=== PATIENT | male | born 1930 | race Caucasian/White ===

== ENCOUNTER 2017-03-24 21:57 | Inpatient (IN) | payer OTHER ==
[~2017-03-24] VITALS: Ht 170.2 cm; Wt 77.4 kg
[~2017-03-24 21:57] MED LIST: ASPIR 8181 M1 PO; ASPIR-LOW81 MG PO; ATORVASTATIN CA20 MG PO; AUGMENTIN875 MG PO; AZITHROMYCIN250 MG1 PO; CARDIZEM CD,CA240 MG PO; CARDIZEM CD120 M1 PO; CEFTIN500 MG PO; CETIRIZINE HCL10 M2 PO; DAILY VALUE1 EACH PO; FEOSOL45 MG PO; FUROSEMIDE20 MG PO; K-TAB ER8 MEQ PO; LANSOPRAZOLE30 MG PO; LEVAQUIN500 MG PO; LEVAQUIN750 MG PO; LIPITOR80 MG PO; LISINOPRIL10 MG PO; LORAZEPAM0.5 MG PO; MIRALAX17 GM PO; PREDNISONE10 MG PO; PREDNISONE5 MG PO; PRILOSEC20 MG PO; PRINIVIL10 MG PO; PROVENTIL,2.5 MG/3 M IH; SPIRIVA1 INHALATI IH; SYMBICORT60 INHALAT IH; TRAMADOL HCL50 MG PO; TYLENOL ARTHRI650 MG PO; ULTRAM50 MG PO; VENTOLIN HFA18 GM IH; VITAMIN D31000 UNI1 PO; VITAMIN D33000 UNIT PO; ZESTRIL5 MG PO; [UNRECOGNIZED DRUG - OTHER] PO
[2017-03-24 23:04] LABS: HEMATOCRIT 42.4 % (38.0-50.0); MCH 29.4 PG (29.0-34.0); MCHC 32.1 G/DL (30.0-36.0); MCV 91.8 FL (86-99); MEAN PLAT.VOLUME 9.6 uM^3 (9.0-12.4); PLATELET COUNT 212 K/uL (156-360); RBC DIS.WIDTH-CV 13.1 % (11.8-14.6); RBC DIS.WIDTH-SD 44.6 % (39-53); RED BLOOD COUNT 4.62 M/uL (4.00-5.50); WHITE BLOOD COUNT 24.2 K/uL (4.1-10.2)
[2017-03-24 23:13] LABS: CHLORIDE 103 mEq/L (99-109); POTASSIUM 4.4 mEq/L (3.7-5.4); SODIUM 140 mEq/L (136-147)
[2017-03-24 23:14] LABS: GLUCOSE 102 mg/dL (70-99)
[2017-03-24 23:16] LABS: ANION GAP 11 MEQ/L (2-14)
[2017-03-24 23:18] LABS: GFR ESTIMATE (CALCULATED) > 59 mL/min/
[2017-03-24 23:19] LABS: UREA NITROGEN (BUN) 16 mg/dL (9-23)
[2017-03-24 23:24] LABS: TROP-I INTERPRETATION NEGATIVE; TROPONIN-I 0.02 ng/mL (0.0-0.30)
[2017-03-25 06:09] LABS: POINT-OF-CARE METER ID UU13113747
[2017-03-25] MEDS ORDERED: KLOR-CON SPRIN10 MEQ PO (09:42)
[2017-03-25] MEDS ORDERED: FERROUS SULFAT325 MG PO (09:43)
[2017-03-25] MEDS ORDERED: PREDNISONE5 MG PO (09:44)
[2017-03-25] MEDS ORDERED: DILTIAZEM 24HR240 MG PO (09:44)
[2017-03-25] MEDS ORDERED: ATORVASTATIN CA10 MG PO (09:44)
[2017-03-25] MEDS ORDERED: SPIRIVA RESPIMAT4 GM IH (09:45)
[2017-03-25] MEDS ORDERED: BREO ELLIPTA 21 EACH IH (09:45)
[2017-03-25] MEDS ORDERED: PROVENTIL,2.5 MG/3 M IH (09:47)
[2017-03-25] MEDS ORDERED: LASIX20 MG PO (09:50)
[2017-03-25] MEDS ORDERED: XANAX0.25 MG PO (09:51)
[2017-03-25] MEDS ORDERED: COLACE100 MG PO (09:52)
[2017-03-25 11:15] VITALS: BP 105/54; BP 132/77
[2017-03-25 12:42] LABS: HEMATOCRIT 36.9 % (38.0-50.0); MCH 29.4 PG (29.0-34.0); MCHC 31.7 G/DL (30.0-36.0); MCV 92.7 FL (86-99); MEAN PLAT.VOLUME 10.1 uM^3 (9.0-12.4); PLATELET COUNT 190 K/uL (156-360); RBC DIS.WIDTH-CV 12.9 % (11.8-14.6); RBC DIS.WIDTH-SD 44.2 % (39-53); RED BLOOD COUNT 3.98 M/uL (4.00-5.50)
[2017-03-25 12:52] LABS: CHLORIDE 106 mEq/L (99-109); POTASSIUM 3.7 mEq/L (3.7-5.4); SODIUM 140 mEq/L (136-147)
[2017-03-25 12:54] LABS: GLUCOSE 148 mg/dL (70-99)
[2017-03-25 12:55] LABS: ANION GAP 9 MEQ/L (2-14)
[2017-03-25 12:56] LABS: TOTAL BILIRUBIN 0.5 mg/dL (0.0-1.0)
[2017-03-25 12:57] LABS: ALKALINE PHOSPHATASE 52 IU/L (3-129)
[2017-03-25 12:58] LABS: GFR ESTIMATE (CALCULATED) > 59 mL/min/
[2017-03-25 12:59] LABS: UREA NITROGEN (BUN) 15 mg/dL (9-23)
[2017-03-25 13:57] LABS: EOSINOPHIL (%) 0.1 % (0-5); IMMATURE GRANULOCYTE (%) 2.4 % (0.0-0.7); IMMATURE GRANULOCYTE COUNT 0.4 K/uL; INSTRUMENT ABS NEUTROPHIL CT 15.8 K/uL; LYMPHOCYTE COUNT 0.4 K/uL (1.0-2.8); MONOCYTE (%) 2.1 % (3-12); MONOCYTE COUNT 0.4 K/uL (0-0.8); NEUTROPHIL (%) 92.7 % (45-76); NEUTROPHIL COUNT 15.8 K/uL (1.8-6.4)
[2017-03-25 15:33] VITALS: BP 108/56
[2017-03-25 18:16] LABS: POINT-OF-CARE METER ID UU14188577
[2017-03-25 20:04] VITALS: BP 125/57
[2017-03-25 21:45] LABS: POINT-OF-CARE METER ID UU14188577
[2017-03-25 23:46] VITALS: BP 102/72
[2017-03-26] VITALS (7 sets, daily range): BP systolic 83–154; BP diastolic 37–92
[2017-03-26 06:34] LABS: POINT-OF-CARE METER ID UU14149397
[2017-03-26 07:04] LABS: MCH 29.5 PG (29.0-34.0); MCHC 32.1 G/DL (30.0-36.0); MCV 91.9 FL (86-99); MEAN PLAT.VOLUME 10.2 uM^3 (9.0-12.4); PLATELET COUNT 187 K/uL (156-360); RBC DIS.WIDTH-CV 13.1 % (11.8-14.6); RBC DIS.WIDTH-SD 44.3 % (39-53); WHITE BLOOD COUNT 18.1 K/uL (4.1-10.2)
[2017-03-26 07:28] LABS: ANION GAP 8 MEQ/L (2-14); CHLORIDE 108 MEQ/L (99-109); GFR ESTIMATE (CALCULATED) > 59 mL/min/; GLUCOSE 143 mg/dL (70-99); POTASSIUM 3.3 MEQ/L (3.7-5.4); SAMPLE HEMOLYSIS CHECK 0; SAMPLE ICTERIC CHECK 0; SAMPLE LIPEMIA CHECK 0; SODIUM 143 MEQ/L (136-147); UREA NITROGEN (BUN) 20 mg/dL (9-23)
[2017-03-26 07:33] LABS: EOSINOPHIL (%) 0 % (0-5); IMMATURE GRANULOCYTE (%) 1.2 % (0.0-0.7); IMMATURE GRANULOCYTE COUNT 0.2 K/uL; INSTRUMENT ABS NEUTROPHIL CT 16.8 K/uL; LYMPHOCYTE COUNT 0.5 K/uL (1.0-2.8); MONOCYTE (%) 3.4 % (3-12); MONOCYTE COUNT 0.6 K/uL (0-0.8); NEUTROPHIL (%) 92.8 % (45-76); NEUTROPHIL COUNT 16.8 K/uL (1.8-6.4)
[2017-03-26 11:50] LABS: POINT-OF-CARE METER ID UU14149397
[2017-03-26 16:32] LABS: POINT-OF-CARE METER ID UU14188577
[2017-03-26 22:13] LABS: POINT-OF-CARE METER ID UU14188577
[2017-03-27 04:28] VITALS: BP 175/77
[2017-03-27 06:31] LABS: HEMATOCRIT 37.9 % (38.0-50.0); MCH 28.9 PG (29.0-34.0); MCHC 31.4 G/DL (30.0-36.0); MEAN PLAT.VOLUME 10.4 uM^3 (9.0-12.4); PLATELET COUNT 231 K/uL (156-360); RBC DIS.WIDTH-CV 13.1 % (11.8-14.6); RBC DIS.WIDTH-SD 44.1 % (39-53); RED BLOOD COUNT 4.12 M/uL (4.00-5.50); WHITE BLOOD COUNT 17.8 K/uL (4.1-10.2)
[2017-03-27 06:44] LABS: POINT-OF-CARE METER ID UU14188577
[2017-03-27 06:56] LABS: ANION GAP 10 MEQ/L (2-14); CHLORIDE 111 MEQ/L (99-109); GFR ESTIMATE (CALCULATED) > 59 mL/min/; POTASSIUM 3.9 MEQ/L (3.7-5.4); SAMPLE HEMOLYSIS CHECK 0; SAMPLE ICTERIC CHECK 0; SAMPLE LIPEMIA CHECK 0; SODIUM 146 MEQ/L (136-147); UREA NITROGEN (BUN) 18 mg/dL (9-23)
[2017-03-27 06:57] LABS: GLUCOSE 98 mg/dL (70-99)
[2017-03-27 08:54] VITALS: BP 154/88
[2017-03-27 11:57] LABS: POINT-OF-CARE METER ID UU14188577
[2017-03-27 12:11] VITALS: BP 138/74
[2017-03-27 15:48] LABS: METH RESISTANT S AUREUS PCR NEGATIVE (NEGATIVE)
[2017-03-27 15:59] VITALS: BP 133/72
[2017-03-27 16:05] LABS: PROBE CHECK PASS; SPECIMEN PROCESSING CONTROL PASS
[2017-03-27 19:36] VITALS: BP 161/78
[2017-03-27 23:17] VITALS: BP 147/74
[2017-03-28 05:00] VITALS: BP 153/69
[2017-03-28 07:25] VITALS: BP 134/61
[2017-03-28 10:49] VITALS: BP 138/94
[2017-03-28 11:55] LABS: POINT-OF-CARE METER ID UU14188577
[2017-03-28 15:32] VITALS: BP 130/83
[2017-03-28 20:02] VITALS: BP 156/81
[2017-03-28 23:49] VITALS: BP 129/69
[2017-03-29] VITALS (10 sets, daily range): BP systolic 117–180; BP diastolic 60–131
[2017-03-29 07:04] LABS: HEMATOCRIT 34.8 % (38.0-50.0); MCH 29.9 PG (29.0-34.0); MCHC 32.2 G/DL (30.0-36.0); MEAN PLAT.VOLUME 10.1 uM^3 (9.0-12.4); PLATELET COUNT 227 K/uL (156-360); RBC DIS.WIDTH-CV 13.4 % (11.8-14.6); RBC DIS.WIDTH-SD 45.8 % (39-53); RED BLOOD COUNT 3.74 M/uL (4.00-5.50); WHITE BLOOD COUNT 4.9 K/uL (4.1-10.2)
[2017-03-29 07:29] LABS: ANION GAP 6 MEQ/L (2-14); CHLORIDE 108 MEQ/L (99-109); GFR ESTIMATE (CALCULATED) > 59 mL/min/; GLUCOSE 132 mg/dL (70-99); POTASSIUM 3.8 MEQ/L (3.7-5.4); SAMPLE HEMOLYSIS CHECK 0; SAMPLE ICTERIC CHECK 0; SAMPLE LIPEMIA CHECK 0; SODIUM 146 MEQ/L (136-147); UREA NITROGEN (BUN) 23 mg/dL (9-23)
[2017-03-29 16:06] LABS: POINT-OF-CARE METER ID UU14188577
[2017-03-30] VITALS (13 sets, daily range): BP systolic 125–190; BP diastolic 65–98
[2017-03-30 02:33] LABS: CARBOXY HGB 2.5 % (0-5); METHEMOGLOBIN 1.6 % (0-1.5); PCO2 35 mm Hg (35-45); PO2 76 mm Hg (80-100)
[2017-03-30 02:34] LABS: BICARBONATE 30.6 mEq/L (22-26); COMMENTS - BLOOD GASES C+; DEVICE NC; O2 FLOW 3.5 L/MIN; SITE LR; TOTAL RESP RATE 26 resp/min; pH 7.55 (7.35-7.45)
[2017-03-30 05:01] LABS: CHLORIDE 104 mEq/L (99-109); POTASSIUM 3.9 mEq/L (3.7-5.4); SODIUM 142 mEq/L (136-147)
[2017-03-30 05:03] LABS: GLUCOSE 185 mg/dL (70-99)
[2017-03-30 05:04] LABS: ANION GAP 13 MEQ/L (2-14)
[2017-03-30 05:05] LABS: TOTAL BILIRUBIN 0.5 mg/dL (0.0-1.0)
[2017-03-30 05:07] LABS: ALKALINE PHOSPHATASE 60 IU/L (3-129); GFR ESTIMATE (CALCULATED) > 59 mL/min/
[2017-03-30 05:08] LABS: UREA NITROGEN (BUN) 28 mg/dL (9-23)
[2017-03-30 05:10] LABS: D-DIMER ELISA 2.97 mg/L FEU (< 0.57)
[2017-03-30 05:11] LABS: TROP-I INTERPRETATION NEGATIVE; TROPONIN-I 0.02 ng/mL (0.0-0.30)
[2017-03-30 07:55] LABS: MAGNESIUM 2.7 mg/dL (1.3-2.7)
[2017-03-30 12:20] LABS: POINT-OF-CARE METER ID UU14174216; POINT-OF-CARE USER ID ENVKC36
[2017-03-30 16:34] LABS: POINT-OF-CARE METER ID UU14174216; POINT-OF-CARE USER ID ENVKC36
[2017-03-31 05:10] VITALS: BP 170/88
[2017-03-31 05:49] LABS: HEMATOCRIT 39.5 % (38.0-50.0); MCH 28.7 PG (29.0-34.0); MCHC 31.6 G/DL (30.0-36.0); MCV 90.6 FL (86-99); MEAN PLAT.VOLUME 9.7 uM^3 (9.0-12.4); RBC DIS.WIDTH-CV 13.3 % (11.8-14.6); RBC DIS.WIDTH-SD 45.1 % (39-53); RED BLOOD COUNT 4.36 M/uL (4.00-5.50); WHITE BLOOD COUNT 7.4 K/uL (4.1-10.2)
[2017-03-31 05:50] LABS: PLATELET COUNT 332 K/uL (156-360)
[2017-03-31 06:10] LABS: ANION GAP 9 MEQ/L (2-14); CHLORIDE 107 MEQ/L (99-109); GFR ESTIMATE (CALCULATED) > 59 mL/min/; GLUCOSE 145 mg/dL (70-99); POTASSIUM 3.7 MEQ/L (3.7-5.4); SAMPLE HEMOLYSIS CHECK 0; SAMPLE ICTERIC CHECK 0; SAMPLE LIPEMIA CHECK 0; SODIUM 144 MEQ/L (136-147); UREA NITROGEN (BUN) 33 mg/dL (9-23)
[2017-03-31 07:15] VITALS: BP 157/84
[2017-03-31 07:47] LABS: POINT-OF-CARE METER ID UU14174216
[2017-03-31 11:20] VITALS: BP 164/83
[2017-03-31 11:23] LABS: POINT-OF-CARE METER ID UU14174216
[2017-03-31 16:22] LABS: POINT-OF-CARE METER ID UU13113698
[2017-03-31 17:44] VITALS: BP 129/77
[2017-03-31 19:30] VITALS: BP 135/71
[2017-03-31 20:43] LABS: POINT-OF-CARE METER ID UU14174216
[2017-03-31 23:39] VITALS: BP 144/78
[2017-04-01 04:23] VITALS: BP 159/74
[2017-04-01 07:40] LABS: POINT-OF-CARE METER ID UU14174216
[2017-04-01 07:54] VITALS: BP 132/76
[2017-04-01 10:55] VITALS: BP 160/71
[2017-04-01 11:58] LABS: ANION GAP 9 MEQ/L (2-14); CHLORIDE 105 MEQ/L (99-109); GFR ESTIMATE (CALCULATED) > 59 mL/min/; GLUCOSE 148 mg/dL (70-99); POTASSIUM 3.8 MEQ/L (3.7-5.4); SAMPLE HEMOLYSIS CHECK 0; SAMPLE ICTERIC CHECK 0; SAMPLE LIPEMIA CHECK 0; SODIUM 141 MEQ/L (136-147); UREA NITROGEN (BUN) 34 mg/dL (9-23)
[2017-04-01 15:06] VITALS: BP 129/71
[2017-04-01 16:53] LABS: HEMATOCRIT 38.8 % (38.0-50.0); MCH 29.7 PG (29.0-34.0); MCHC 32.5 G/DL (30.0-36.0); MCV 91.5 FL (86-99); MEAN PLAT.VOLUME 9.8 uM^3 (9.0-12.4); PLATELET COUNT 306 K/uL (156-360); RBC DIS.WIDTH-CV 13.4 % (11.8-14.6); RBC DIS.WIDTH-SD 45.2 % (39-53); RED BLOOD COUNT 4.24 M/uL (4.00-5.50); WHITE BLOOD COUNT 10.6 K/uL (4.1-10.2)
[2017-04-01 17:01] LABS: INTER. NORMALIZED RATIO 1.1; PTT 22.6 (25-32)
[2017-04-01 19:33] VITALS: BP 125/63
[2017-04-01 23:06] VITALS: BP 143/80
[2017-04-02 03:00] VITALS: BP 158/80
[2017-04-02 06:27] LABS: HEMATOCRIT 39.6 % (38.0-50.0); MCH 29.8 PG (29.0-34.0); MCHC 32.6 G/DL (30.0-36.0); MCV 91.5 FL (86-99); PLATELET COUNT 338 K/uL (156-360); RBC DIS.WIDTH-CV 13.2 % (11.8-14.6); RED BLOOD COUNT 4.33 M/uL (4.00-5.50); WHITE BLOOD COUNT 13.2 K/uL (4.1-10.2)
[2017-04-02 07:03] LABS: ANION GAP 8 MEQ/L (2-14); CHLORIDE 107 MEQ/L (99-109); GFR ESTIMATE (CALCULATED) > 59 mL/min/; GLUCOSE 90 mg/dL (70-99); POTASSIUM 4.2 MEQ/L (3.7-5.4); SAMPLE HEMOLYSIS CHECK 0; SAMPLE ICTERIC CHECK 0; SAMPLE LIPEMIA CHECK 0; SODIUM 142 MEQ/L (136-147); UREA NITROGEN (BUN) 29 mg/dL (9-23)
[2017-04-02 07:55] VITALS: BP 137/75
[2017-04-02 11:30] VITALS: BP 142/81
[2017-04-02] MEDS ORDERED: AMOX TR-K CLV1 EAC4 PO (15:01)
[2017-04-02] MEDS ORDERED: ELIQUIS5 MG PO (15:02)
[2017-04-02] MEDS ORDERED: TRAZODONE HCL50 MG PO (15:03)
[2017-04-02] MEDS ORDERED: MUCINEX600 MG PO (15:04)
[2017-04-02] MEDS ORDERED: PREDNISONE20 MG PO (15:04)
[2017-04-02] MEDS ORDERED: BENZONATATE100 MG PO (15:04)
[2017-04-02] MEDS ORDERED: BACITRACIN28.4 GM TP (15:05)
[2017-04-02] MEDS ORDERED: XANAX0.25 MG PO (15:25)
[2017-04-02 16:30] VITALS: BP 140/69
[2017-04-02 19:18] VITALS: BP 148/79
== END 2017-04-03 00:40 | DRG 871 ==
LOC: EME → EDBD 21:57 → EDOF 03-25 02:43 → 3EAST 03-25 02:43 → 4EAST 03-30 04:50
PROVIDERS: Emergency Medicine; Hospitalist; Internal Medicine; Physician Assistant; Physician Assistant Medical
DX: A41.9 Sepsis, unspecified organism (principal); J69.0 Pneumonitis due to inhalation of food and vomit; J96.21 Acute and chronic respiratory failure with hypoxia; G93.41 Metabolic encephalopathy; R65.20 Severe sepsis without septic shock; J44.1 Chronic obstructive pulmonary disease with (acute) exacerbation; I11.0 Hypertensive heart disease with heart failure; I50.32 Chronic diastolic (congestive) heart failure; I82.412 Acute embolism and thrombosis of left femoral vein; E87.6 Hypokalemia; I48.0 Paroxysmal atrial fibrillation; I47.1 Supraventricular tachycardia; R13.10 Dysphagia, unspecified; R41.0 Disorientation, unspecified; T38.0X5A Adverse effect of glucocorticoids and synthetic analogues, initial encounter; I73.9 Peripheral vascular disease, unspecified; K21.9 Gastro-esophageal reflux disease without esophagitis; D64.9 Anemia, unspecified; E78.5 Hyperlipidemia, unspecified; Z79.51 Long term (current) use of inhaled steroids; Z79.52 Long term (current) use of systemic steroids; Z99.81 Dependence on supplemental oxygen; Z87.891 Personal history of nicotine dependence; Z87.11 Personal history of peptic ulcer disease
CPT/HCPCS: 36600; 70450; 71010; 71020; 71250; 71275; 74230; 78582; 80048; 80053; 80202; 81003; 82803; 82948; 83605; 83735; 84484; 85025; 85027; 85379; 85610; 85730; 87040; 87641; 92610 GN; 92611 GN; 93005; 93970; 94640; 94640 76; 94760; 94799; 95819; 97530 GO; 97530 GP; 99202; 99281; 99285; A9539; A9540; J0456; J0696; J1100; J1644; J1815; J1940; J2543; J2930; J3370; J3475; J7030; J7050; J7120; J7512; J7644; J8540; S0030

== ENCOUNTER → 2017-04-24 | Outpatient (CLI) | payer OTHER ==
[~2017-04-24] MED LIST changes: +AMOX TR-K CLV1 EAC4 PO; +ATORVASTATIN CA10 MG PO; +BACITRACIN28.4 GM TP; +BENZONATATE100 MG PO; +BREO ELLIPTA 21 EACH IH; +COLACE100 MG PO; +DILTIAZEM 24HR240 MG PO; +ELIQUIS5 MG PO; +FERROUS SULFAT325 MG PO; +KLOR-CON SPRIN10 MEQ PO; +LASIX20 MG PO; +MUCINEX600 MG PO; +PREDNISONE20 MG PO; +SPIRIVA RESPIMAT4 GM IH; +TRAZODONE HCL50 MG PO; +XANAX0.25 MG PO
== END ==
LOC: RAD 16:27
DX: J98.4 Other disorders of lung (principal); R79.89 Other specified abnormal findings of blood chemistry
CPT/HCPCS: 71275

== ENCOUNTER → 2017-05-02 | Outpatient (CLI) | payer OTHER ==
[~2017-05-02] VITALS: Ht 170.2 cm; Wt 64.8 kg
[~2017-05-02] MED LIST changes: +OMEGA-31000 M1 PO; +RAYOS5 MG PO; +VITAMIN D5000 UNI1 PO
== END | disposition home or self-care (01) ==
LOC: AMB 11:48
DX: D50.9 Iron deficiency anemia, unspecified (principal); K21.0 Gastro-esophageal reflux disease with esophagitis; K44.9 Diaphragmatic hernia without obstruction or gangrene; K29.40 Chronic atrophic gastritis without bleeding; D12.4 Benign neoplasm of descending colon; D12.2 Benign neoplasm of ascending colon; K63.5 Polyp of colon; K57.30 Diverticulosis of large intestine without perforation or abscess without bleeding; K64.8 Other hemorrhoids; I10 Essential (primary) hypertension; E78.5 Hyperlipidemia, unspecified; J44.9 Chronic obstructive pulmonary disease, unspecified; I71.4 Abdominal aortic aneurysm, without rupture; Z95.828 Presence of other vascular implants and grafts; Z87.891 Personal history of nicotine dependence; Z79.82 Long term (current) use of aspirin; Z88.8 Allergy status to other drugs, medicaments and biological substances
CPT/HCPCS: 84132; 88305

== ENCOUNTER → 2017-09-23 | Outpatient (CLI) | payer OTHER | END | disposition home or self-care (01) | LOC: AMB 11:13 | DX: C44.629 Squamous cell carcinoma of skin of left upper limb, including shoulder (principal); K21.9 Gastro-esophageal reflux disease without esophagitis; D64.9 Anemia, unspecified; E78.5 Hyperlipidemia, unspecified; J44.9 Chronic obstructive pulmonary disease, unspecified; M19.90 Unspecified osteoarthritis, unspecified site; Z79.82 Long term (current) use of aspirin; Z79.52 Long term (current) use of systemic steroids; Z83.3 Family history of diabetes mellitus; Z80.0 Family history of malignant neoplasm of digestive organs; Z88.8 Allergy status to other drugs, medicaments and biological substances | CPT/HCPCS: 88305 ==